=== PATIENT | male | born 1950 | race Native Hawaiian/Other Pacific Islander ===

== ENCOUNTER 2022-01-31 14:30 | Emergency (ER) | payer OTHER ==
[~2022-01-31] VITALS: Ht 172.7 cm; Wt 68.0 kg
[2022-01-31 15:02] LABS: PLATELET COUNT 298 K/uL (142-355)
[2022-01-31 15:12] LABS: POTASSIUM 4.4 mmol/L (3.6-5.2)
[2022-01-31 18:49] LABS: POTASSIUM 4.1 mmol/L (3.6-5.2)
[2022-01-31 19:40] VITALS: BP 129/70; TEMP 97.7
== END 2022-01-31 19:40 | disposition home or self-care (01) ==
LOC: ED 14:30
PROVIDERS: Emergency Medicine
DX: E87.1 Hypo-osmolality and hyponatremia (principal)
CPT/HCPCS: 36415; 80048; 80053; 80320; 81000; 83930; 83935; 84443; 85027; 96360; 96361; 99284

== ENCOUNTER 2023-01-16 18:24 | Observation (INO) | payer OTHER ==
[~2023-01-16] VITALS: Ht 172.7 cm; Wt 61.2 kg
[2023-01-16 18:30] VITALS: BP 103/34; TEMP 97.9
[2023-01-16 18:53] LABS: PLATELET COUNT 355 K/uL (142-355)
[2023-01-16 19:12] LABS: POTASSIUM 4.8 mmol/L (3.6-5.2)
[2023-01-16 19:24] LABS: PARTIAL THROMBOPLASTIN TIME 29.3 SECONDS (24.5-33.6)
[2023-01-16 22:32] VITALS: BP 136/63; TEMP 97.6; Ht 172.7 cm; Wt 61.2 kg
[2023-01-17] VITALS (13 sets, daily range): BP systolic 98–138; BP diastolic 41–70; TEMP 98–98.5
[2023-01-17 10:15] LABS: PLATELET COUNT 341 K/uL (142-355)
[2023-01-17 10:25] LABS: POTASSIUM 4.5 mmol/L (3.6-5.2)
[2023-01-17] MEDS ORDERED: ASPIRIN 8181 MG PO (20:10)
[2023-01-17] MEDS ORDERED: PROAIR HFA INH (20:10)
[2023-01-17] MEDS ORDERED: DULCOLAX5 MG PO (20:11)
[2023-01-17] MEDS ORDERED: LIPITOR80 MG PO (20:11)
[2023-01-17] MEDS ORDERED: BREZTRI AEROSPH1 AER INH (20:13)
[2023-01-17] MEDS ORDERED: DIGITEK0.125 MG PO (20:14)
[2023-01-17] MEDS ORDERED: CYCL10TA35 PO (20:14)
[2023-01-17] MEDS ORDERED: FOSI20TA2 PO (20:15)
[2023-01-17] MEDS ORDERED: DILT30TA24 PO (20:15)
[2023-01-17] MEDS ORDERED: PANTOPRAZOLE 40MG TA PO (20:16)
[2023-01-17] MEDS ORDERED: POLYETHYLE17 GM/SCO1 PO (20:17)
[2023-01-17] MEDS ORDERED: TERAZOSIN HYDROC5 MG PO (20:17)
[2023-01-17] MEDS ORDERED: TRAMADOL HYDROC50 MG PO (20:18)
== END 2023-01-17 21:29 | disposition short-term general hospital (02) ==
LOC: ED 18:24 → MED/SURG 20:45
PROVIDERS: ADMIT Emergency Medicine; ATTEND Internal Medicine
PROC: 30233N1 Transfusion of Nonautologous Red Blood Cells into Peripheral Vein, Percutaneous Approach (ICD-10-PCS; principal; 2023-01-17)
DX: D64.89 Other specified anemias (principal); I49.8 Other specified cardiac arrhythmias; I48.91 Unspecified atrial fibrillation; I10 Essential (primary) hypertension; N40.0 Benign prostatic hyperplasia without lower urinary tract symptoms; J44.1 Chronic obstructive pulmonary disease with (acute) exacerbation; R06.02 Shortness of breath; Z99.81 Dependence on supplemental oxygen
CPT/HCPCS: 36415; 36430; 80053; 82272; 82607; 82728; 82747; 83540; 83550; 84466; 84484; 85027; 85610; 85730; 86850; 86900; 86901; 86922; 93005; 94664; 94760; 96361; 96367; 96374; 99220; 99283; G0378; J1940; J3490; P9016